=== PATIENT | female | born 1985 | race Caucasian/White ===

== ENCOUNTER 2018-11-18 20:37 | Inpatient (IN) | payer OTHER ==
[~2018-11-18] VITALS: Ht 177.8 cm; Wt 104.1 kg
--- NOTE | 2018-11-18 02:18 | NUR ---
Mi QUEZADA at bedside for IV placment. IV to RAC and lab work drawn via IV site. LR bolus infusing without difficulties. 2249: SVE 3/80/-2. PT requesting epidural at this time. LR bolus infusing and Mi QUEZADA on unit and notified. 2311: Mi QUEZADA at bedside for epidural placement. Pt asssited to edge of bed. Pulse ox applied. 2220: Single shot administered by Mi QUEZADA. See anesthesia records. 2328: Pt assisted to wedge right position. Plan of care and safety precautions explained to pt and . 0015: Chin inserted without difficulties at this time. SVE 3-4/80/-2. 0110: No FHR accelerations noted since 2254. Pt repositioned multiples times and oxygen administered and LR bolus infusing. updated on pts status. See physican notification. 0311: Pt having recurrent late decelerations with periods of moderate to minimal variability. MAternal temp 99.6 axillary. SVE 4/90/-2. updated on plan of care. See physican notification. Pt and updated on plan of care and potential of . 0340: Maternal temperature 99.9 orally. at bedside. SVE 5 per provider. explained and decision for made at this time. Procedure explained to pt and per provider. Super pubic clipped and prepped. 0358: Pt off monitors and to OR via bed for .
--- NOTE | 2018-11-18 20:20 | NUR ---
Pt arrived on unit ambulatory escorted by with complaints of leaking fluid starting around 1999 with contractions starting shortly after SROM. Pt also reports normal movement. EFM and toco monitors placed. Vital signs WNL. Amnitrace positive. SVE by this RN . Information reviewed with Dr. Larson. FHR tracing reviewed. Orders for labor admission received. Plan of care reviwed with pt and at the bedside.
[~2018-11-18 20:37] MED LIST: ADVIL200 MG PO; CLARITIN 1010 MG/TAB PO; NASONEX SPRAY17 GM NS; PROTONIX 40MG T40 MG PO
[2018-11-18] MEDS ORDERED: CLARITIN 1010 MG/TAB PO (22:11)
[2018-11-18] MEDS ORDERED: FLONASE NASAL S16 GM NS (22:12)
[2018-11-18] MEDS ORDERED: PRENATAL MVI PO (22:12)
[2018-11-18] MEDS ORDERED: CALCIUM CARBON650 M2 PO (22:13)
[2018-11-18 22:30] VITALS: BP 114/82; PULSE 91
[2018-11-18 23:00] VITALS: BP 121/77; PULSE 109
[2018-11-18 23:00] LABS: BASO % 0.2 % (0.0-2.0); EOS % 0.3 % (0-4.0); GRAN # 12.7 (1.4-6.5); GRAN % 83.8 % (42.2-75.2); HEMOGLOBIN 14.2 g/dl (12.5-16.0); LYMPH # 1.4 (1.2-3.4); LYMPH % 9.2 % (20.0-51.0); MEAN CELL VOLUME 90 fl (80.0-100.0); MEAN CORPUSCULAR HEMOGLOBIN 31 pg (27.0-31.0); MEAN CORPUSCULAR HGB CONC 35 g/dl (33.0-37.0); MEAN PLATELET VOLUME 11.7 fl (7.4-10.4); MONO # 0.9 (0.1-0.6); MONO % 6.1 % (1.7-9.3); PLATELET COUNT 185 K/mm3 (130-400); RED BLOOD COUNT 4.56 M/mm3 (4.10-5.30); REDCELL DISTRIBUTION WIDTH-CV 12.9 % (11.5-14.5)
[2018-11-18 23:30] VITALS: BP 108/68; PULSE 104; TEMP 99.3
[2018-11-18 23:45] VITALS: BP 106/64; PULSE 98
[2018-11-19] VITALS (33 sets, daily range): BP systolic 94–140; BP diastolic 55–82; PULSE 73–125; TEMP 98.2–99.9
[2018-11-19] MEDS ORDERED: MOTRIN 800800 MG/TAB PO (08:53)
[2018-11-19] MEDS ORDERED: PERCOCET 325 MG1 TA2 PO (08:53)
--- NOTE | 2018-11-19 11:05 | NUR ---
Initial visit attempt; Family resting, [employer] left card offering congratulations for the of their daughter and information regarding the availability of spiritual care at [facility].
--- NOTE | 2018-11-19 12:06 | NUR ---
Follow up visit from the transportation associate. [employer] Manager prayed with family. No other needs right now
[2018-11-20 02:00] VITALS: BP 115/68; PULSE 89; TEMP 98.2
[2018-11-20 07:00] VITALS: BP 116/63; PULSE 77; TEMP 97.8
[2018-11-20 16:25] VITALS: BP 122/74; PULSE 99; TEMP 97.6
[2018-11-20 20:00] VITALS: BP 120/81; PULSE 119; TEMP 97.5
[2018-11-21 09:00] VITALS: BP 128/75; PULSE 90; TEMP 97.1
--- NOTE | 2018-11-21 12:54 | NUR ---
Patient discharge instructions reviewed with patient and spouse. Script for Percocet and motrin given and explained. Patient and verbalize understanding.
== END 2018-11-21 14:00 | disposition home or self-care (01) | DRG 788 ==
LOC: LDRO 20:37 → LDR 21:22 → OB 11-19 05:45
PROVIDERS: ADMIT Obstetrics & Gynecology
PROC: 10D00Z1 Extraction of Products of Conception, Low, Open Approach (ICD-10-PCS; principal; 2018-11-18)
DX: O42.02 Full-term premature rupture of membranes, onset of labor within 24 hours of rupture (principal); Z37.0 Single live birth; O76 Abnormality in fetal heart rate and rhythm complicating labor and delivery; Z3A.40 40 weeks gestation of pregnancy; Z88.2 Allergy status to sulfonamides; O77.0 Labor and delivery complicated by meconium in amniotic fluid; N83.8 Other noninflammatory disorders of ovary, fallopian tube and broad ligament
CPT/HCPCS: J0690; J1885; J2175; J2270; J2370; J2405; J2590; J2795; J7120

== ENCOUNTER → 2019-09-18 | Outpatient (CLI) | payer OTHER ==
[~2019-09-18] MED LIST changes: +CALCIUM CARBON650 M2 PO; +FLONASE NASAL S16 GM NS; +MOTRIN 800800 MG/TAB PO; +PERCOCET 325 MG1 TA2 PO; +PRENATAL MVI PO
== END ==
LOC: COL.RAD 14:30
DX: R10.31 Right lower quadrant pain (principal); R50.9 Fever, unspecified
CPT/HCPCS: Q9967

== ENCOUNTER → 2019-09-25 | Outpatient (CLI) | payer OTHER | LOC: COL.RAD 09:48 | DX: R10.11 Right upper quadrant pain (principal) | CPT/HCPCS: A9537; J2805 ==

== ENCOUNTER → 2020-12-08 | Outpatient (CLI) | payer OTHER ==
[~2020-12-08] MED LIST changes: +ZYRTEC 10MG10 MG PO
== END | disposition still patient (30) ==
LOC: ZCOL.LAB 01:47
DX: Z20.822 Contact with and (suspected) exposure to COVID-19 (principal)

== ENCOUNTER 2020-12-11 05:35 | Inpatient (IN) | payer OTHER ==
[~2020-12-11] VITALS: Ht 180.3 cm; Wt 103.2 kg
[2020-12-11] VITALS (15 sets, daily range): BP systolic 102–126; BP diastolic 61–79; PULSE 63–86; TEMP 97.5–97.8
[~2020-12-11 05:35] MED LIST changes: -ZYRTEC 10MG10 MG PO
--- NOTE | 2020-12-11 05:35 | NUR ---
Ambulatory to unit for scheduled repeat C/S accompanied by spouse. Oriented to room, plan of care. Questions invited and answered. Pt anxious, diaphoretic, HR 137. Pt states "I'm really worried about the IV, it took them 3 times last time and it really hurt." Cool washcloth applied to forehead.
--- NOTE | 2020-12-11 06:20 | NUR ---
Assumed care of patient. Assessment done, questions offered and answered. Denies any questions or concerns at this time. Spouse at bedside. monitor on, heart tones 140 with no decels.
[2020-12-11] MEDS ORDERED: ZYRTEC 10MG10 MG PO (06:39)
[2020-12-11] MEDS ORDERED: MOTRIN 800800 MG/TAB PO (06:52)
[2020-12-11] MEDS ORDERED: PERCOCET 325 MG1 TA2 PO (06:52)
[2020-12-11 06:53] LABS: BASO % 0.3 % (0.0-2.0); EOS # 0.1 (0.0-0.7); EOS % 1.3 % (0-4.0); GRAN # 7.3 (1.4-6.5); HEMATOCRIT 38.1 % (37.0-47.0); HEMOGLOBIN 13.1 g/dl (12.5-16.0); LYMPH # 2.3 (1.2-3.4); LYMPH % 22.2 % (20.0-51.0); MEAN CELL VOLUME 90 fl (80.0-100.0); MEAN CORPUSCULAR HEMOGLOBIN 31 pg (27.0-31.0); MEAN CORPUSCULAR HGB CONC 34 g/dl (33.0-37.0); MEAN PLATELET VOLUME 11.3 fl (7.4-10.4); MONO # 0.6 (0.1-0.6); MONO % 5.7 % (1.7-9.3); PLATELET COUNT 223 K/mm3 (130-400); RED BLOOD COUNT 4.24 M/mm3 (4.10-5.30); REDCELL DISTRIBUTION WIDTH-CV 12.9 % (11.5-14.5)
--- NOTE | 2020-12-11 08:30 | NUR ---
To pacu via bed, alert. Denies any needs at this time.
--- NOTE | 2020-12-11 08:45 | NUR ---
Rests in bed, alert. Spouse here with baby.
--- NOTE | 2020-12-11 09:15 | NUR ---
Rests in bed, alert. Denies any discomfort or pain at this time.
--- NOTE | 2020-12-11 10:00 | NUR ---
Rests in bed, alert. Spouse at bedside holding baby.
--- NOTE | 2020-12-11 11:30 | NUR ---
Rests in bed, alert. Pad change and delonte care given. 1200 Request pain medication. Percocet 5/325 mg two given per request and as ordered.
--- NOTE | 2020-12-11 13:30 | NUR ---
Rests in bed, alert. baby. 0560 healthcare network consultant here working with patient.
--- NOTE | 2020-12-11 16:15 | NUR ---
Rests in bed, alert. Request pain medication. Percocet 5/325 mg two given per request and as ordered.
--- NOTE | 2020-12-11 17:15 | NUR ---
Ambulates to the bathroom. Chin catheter taken out. Pericare done by patient. Ambulates in the acosta with spouse.
[2020-12-12 00:30] VITALS: BP 110/68; PULSE 85; TEMP 98
[2020-12-12 04:54] VITALS: BP 122/71; PULSE 70; TEMP 97.2
[2020-12-12 08:00] VITALS: BP 133/81; PULSE 91; TEMP 97.4
[2020-12-12 17:20] VITALS: BP 123/73; PULSE 83; TEMP 98.4
[2020-12-12 20:00] VITALS: BP 121/71; PULSE 72; TEMP 97.3
[2020-12-13 01:16] VITALS: BP 118/68; PULSE 70; TEMP 97.4
[2020-12-13 07:15] VITALS: BP 129/81; PULSE 90; TEMP 98.1
== END 2020-12-13 10:40 | disposition home or self-care (01) | DRG 788 ==
LOC: OB 05:35
PROVIDERS: ADMIT Obstetrics & Gynecology
PROC: 10D00Z1 Extraction of Products of Conception, Low, Open Approach (ICD-10-PCS; principal; 2020-12-11)
DX: O34.211 Maternal care for low transverse scar from previous cesarean delivery (principal); Z3A.39 39 weeks gestation of pregnancy; Z37.0 Single live birth
CPT/HCPCS: J2405; J7120